=== PATIENT | male | born 2000 | race Caucasian/White ===

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

== ENCOUNTER 2021-04-21 10:01 | Emergency (ER) | payer MEDICAID, OTHER ==
[~2021-04-21] VITALS: Ht 185.4 cm; Wt 89.8 kg
--- NOTE | 2021-04-21 10:24 | PHYS DOC ---
Past History Past Medical History: Other (ALCIDES EDEN APRN) Past Surgical History: No Surgical History (ALCIDES EDEN APRN) Smoking: Non-smoker Alcohol Use: None Drug Use: None (ALCIDES EDEN APRN) General Adult EDM: Chief Complaint: ABDOMINAL PAIN HPI: HPI: Patient is a 20-year-old male who presents to the emergency department for multiple complaints. Patient reports on and Wednesday he had nausea, vomiting and a nonproductive cough. He took at home Covid test on Wednesday and it was negative. He reports on Wednesday and Wednesday he started developing dysuria with right lower quadrant pain that radiates to his right testicle. He rates the pain 3 out of 10. It is worse with movement. No treatment prior to arrival. Patient denies any urethral discharge, nausea, vomiting, diarrhea, blood in his stools, difficulty breathing, fevers, urinary frequency or urgency. He has no medical history. He is not vaccinated for COVID-19. (ALCIDES EDEN APRN) Review of Systems: Review of Systems: Constitutional: negative unless reported in HPI Eyes: negative unless reported in HPI HENT: negative unless reported in HPI Respiratory: negative unless reported in HPI Cardiovascular: negative unless reported in HPI GI: negative unless reported in HPI : negative unless reported in HPI Musculoskeletal: negative unless reported in HPI Integument: negative unless reported in HPI Neurologic: negative unless reported in HPI Endocrine: negative unless reported in HPI Lymphatic: negative unless reported in HPI Psychiatric: negative unless reported in HPI (ALCIDES EDEN APRN) Current Medications: Current Meds: Current Medications Medications (Trade) Dose Ordered Sig/Mukesh Start Time Stop Time Status Last Admin Dose Admin Fentanyl Citrate (Fentanyl 2ml Vial) 50 mcg 1X ONCE 04/21/21 10:30 04/21/21 10:31 UNV Sodium Chloride 1,000 ml @ 1,000 mls/hr Q1H 04/21/21 10:30 04/21/21 11:29 UNV (ALCIDES EDEN APRN) Allergies: Allergies: Allergies Coded Allergies Type Severity Reaction Last Updated Verified No Known Drug Allergies 01/28/18 No (ALCIDES EDEN APRN) Physical Exam: PE: Constitutional: Well developed, well nourished, no acute distress, non-toxic appearance. [] HENT: Normocephalic, atraumatic, bilateral external ears normal, oropharynx moist, no oral exudates, nose normal. [] Eyes: PERRL, EOMI, conjunctiva normal, no discharge. [] Neck: Normal range of motion, no tenderness, supple, no stridor. [] Cardiovascular:Heart rate tachycardic rhythm, no murmur [] Lungs & Thorax: Bilateral breath sounds clear to auscultation [] Abdomen: Bowel sounds normal, soft, patient has tenderness with palpation to right upper, right lower and left lower quadrant, abdomen is not rigid, no rebound tenderness,, no masses, no pulsatile masses. [] Skin: Warm, dry, no erythema, no rash. [] Back: No tenderness, no CVA tenderness. [] Extremities: No tenderness, no cyanosis, no clubbing, ROM intact, no edema. [] Neurologic: Alert and oriented X 3, normal motor function, normal sensory function, no focal deficits noted. [] Psychologic: Affect normal, judgement normal, mood normal. [] (ALCIDES EDEN APRN) Current Patient Data: Labs: Laboratory Tests Test 04/21/21 10:15 04/21/21 10:35 04/21/21 10:40 Urine Collection Type Unknown Urine Color Yellow Urine Clarity Clear Urine pH 6.5 Urine Specific [place] 1.015 Urine Protein Neg Urine Glucose (UA) Neg mg/dL Urine Ketones (Stick) >=160 mg/dL Urine Blood Neg Urine Nitrite Neg Urine Bilirubin Small Urine Urobilinogen Dipstick 1.0 mg/dL Urine Leukocyte Esterase Neg Urine RBC Occ /HPF Urine WBC Occ /HPF Urine Squamous Epithelial Cells Few /LPF Urine Bacteria 0 /HPF Urine Mucus Slight /LPF White Blood Count 15.7 x10^3/uL Red Blood Count 4.69 x10^6/uL Hemoglobin 13.7 g/dL Hematocrit 40.1 % Mean Corpuscular Volume 85 fL Mean Corpuscular Hemoglobin 29 pg Mean Corpuscular Hemoglobin Concent 34 g/dL Red Cell Distribution Width 12.7 % Platelet Count 293 x10^3/uL Neutrophils (%) (Auto) 82 % Lymphocytes (%) (Auto) 6 % Monocytes (%) (Auto) 11 % Eosinophils (%) (Auto) 1 % Basophils (%) (Auto) 0 % Neutrophils # (Auto) 12.9 x10^3uL Lymphocytes # (Auto) 0.9 x10^3/uL Monocytes # (Auto) 1.7 x10^3/uL Eosinophils # (Auto) 0.1 x10^3/uL Basophils # (Auto) 0.0 x10^3/uL Platelet Estimate Pending Sodium Level 130 mmol/L Potassium Level 3.4 mmol/L Chloride Level 95 mmol/L Carbon Dioxide Level 24 mmol/L Anion Gap 11 Blood Urea Nitrogen 9 mg/dL Creatinine 0.8 mg/dL Estimated GFR (Cockcroft-Gault) 124.5 BUN/Creatinine Ratio 11 Glucose Level 84 mg/dL Calcium Level 8.8 mg/dL Total Bilirubin 0.8 mg/dL Aspartate Amino Transf (AST/SGOT) 43 U/L Alanine Aminotransferase (ALT/SGPT) 59 U/L Alkaline Phosphatase 172 U/L Total Protein 7.2 g/dL Albumin 3.2 g/dL Albumin/Globulin Ratio 0.8 Lipase 59 U/L Influenza Type A (Rapid) Negative Influenza Type B (Rapid) Negative SARS-CoV-2 Antigen (Rapid) Negative Current Medications Medications (Trade) Dose Ordered Sig/Mukesh Route PRN Reason Start Time Stop Time Status Last Admin Dose Admin Sodium Chloride 1,000 ml @ 1,000 mls/hr Q1H IV 04/21/21 10:30 04/21/21 11:29 DC 04/21/21 10:39 Fentanyl Citrate (Fentanyl 2ml Vial) 50 mcg 1X ONCE IVP 04/21/21 10:30 04/21/21 10:31 DC 04/21/21 10:39 Iohexol (Omnipaque 350 Mg/ml) 100 ml 1X ONCE IV 04/21/21 10:30 04/21/21 10:31 DC 04/21/21 10:42 Info (Do NOT chart on this entry -- for MONITORING) 1 each PRN DAILY PRN MC SEE COMMENTS 04/21/21 10:30 04/23/21 10:29 Fentanyl Citrate (Fentanyl 2ml Vial) 50 mcg 1X ONCE IVP 04/21/21 11:45 04/21/21 11:46 DC 04/21/21 11:47 Piperacillin Sod/ Tazobactam Sod 4.5 gm/Sodium Chloride 50 ml @ 100 mls/hr 1X ONCE IV 04/21/21 11:45 04/21/21 12:14 04/21/21 11:49 Sodium Chloride 50 ml @ As Directed STK-MED ONCE .ROUTE 04/21/21 11:39 04/21/21 11:39 DC Piperacillin Sod/ Tazobactam Sod (Zosyn) 4.5 gm STK-MED ONCE IV 04/21/21 11:39 04/21/21 11:39 DC (ALCIDES EDEN APRN) EKG: EKG: [] (ALCIDES EDEN APRN) Radiology/Procedures: Radiology/Procedures: []PROCEDURE: CT ABD PELV W/ IV CONTRST ONLY INDICATION: Reason: ruq, rlq pain / Spl. Instructions: / History: COMPARISON: None. TECHNIQUE: Axial CT images were obtained through the abdomen and pelvis with intravenous contrast. One or more of the following individualized dose reduction techniques were utilized for this examination: 1. Automated exposure control; 2. Adjustment of the mA and/or kV according to patient size; 3. Use of iterative reconstruction technique. FINDINGS: Vascular: No abdominal aortic aneurysm. Hepatobiliary: No intrahepatic biliary duct dilation. Pancreas: No peripancreatic edema. Spleen: Mildly prominent in size. Renal/Bladder: No hydronephrosis. Gastrointestinal: Free fluid in the pelvis which appears partially loculated measuring up to about 71 mm. Dilated blind-ending tubular structure right lower quadrant measuring up to about 24 mm in size with adjacent edema to the fat. Appendicolith within. There is some apparent inflammation of the adjacent bowel loops including distal ileum. There is some free fluid seen posterior to the right side of the colon as well. Degenerative changes the spine. IMPRESSION: * The appendix is dilated with thickening of the wall and adjacent edema consistent with acute appendicitis. There is also adjacent free fluid as well as some fluid in the pelvis which appears partially loculated as well as wall thickening and inflammation of the adjacent bowel loops which could be secondary to the adjacent appendicitis causing inflammation of the adjacent bowel. Report called to the emergency department at 11:00 AM on date of exam. Electronically signed by: Karl Hernandes MD (04/21/2021 11:08 AM) [id number] DICTATED AND SIGNED BY: KARL HERNANDES MD DATE: 04/21/21 1055 CC: ALCIDES EDEN APRN; PCP,NO ~MTH0 0 (ALCIDES EDEN APRN) Heart Score: C/O Chest Pain: N/A Risk Factors: Risk Factors: DM, Current or recent (<one month) smoker, HTN, HLP, family history of CAD, obesity. Risk Scores: Score 0 - 3: 2.5% MACE over next 6 weeks - Discharge Home Score 4 - 6: 20.3% MACE over next 6 weeks - Admit for Clinical Observation Score 7 - 10: 72.7% MACE over next 6 weeks - Early Invasive Strategies (ALCIDES EDEN APRN) Course & Med Decision Making: Course & Med Decision Making Pertinent Labs and Imaging studies reviewed. (See chart for details) [] Patient presents to the emergency department for right lower quadrant pain that radiates to his right testicle with dysuria. Patient did have a history of nausea vomiting and a cough and had a negative at-home COVID test. Patient will be tested for Covid in the ER. Patient is tender in his right upper and lower quadrant as well as his left lower quadrant. Work-up in the ER consisted of blood work, urinalysis, GC chlamydia testing, CT imaging of abdomen and pelvis. Patient was tachycardic in the emergency department and will be treated with IV fluids he will also receive pain medication. Patient has leukocytosis with a white blood cell count of 15.7, CMP is mostly unremarkable. CT scan of abdomen and pelvis shows a dilated appendix with edema consistent with appendicitis with adjacent free fluid in the pelvis and inflammation of the bowel loops. I discussed these findings with Dr. Natarajan who is general surgery at [facility] and he agreed to consult on the patient. He recommended IV Zosyn. This was ordered for patient. Patient's last meal was Wednesday and n.p.o. orders were placed. I discussed these fin dings with Dr. St who agreed to admit the patient at [facility] under his services. I discussed these findings with patient as well as care plan and he is agreeable at this time. (ALCIDES EDEN APRN) Dragon Disclaimer: Dragon Disclaimer: This electronic medical record was generated, in whole or in part, using a voice recognition dictation system. (ALCIDES EDEN APRN) Departure Departure: Impression: Primary Impression: Appendicitis Qualified Codes: K35.80 - Unspecified acute appendicitis Disposition: 02 SHORT TERM HOSPITAL Condition: STABLE Referrals: PCP,NO (PCP) Attending Signature Attending Signature I have reviewed the PA/LICENSED AUDIOLOGIST's note and plan of care. I was available for consultation as needed during the patient's visit in the emergency department. I agree with the clinical impression, plan, and disposition. (KARELY SANTAMARIA DO) ALCIDES EDEN APRN Apr 21, 2021 10:24 KARELY SANTAMARIA DO Apr 21, 2021 21:37
[2021-04-21] MEDS ORDERED: CONTRAST GIVEN. MC PRN (10:30)
[2021-04-21] MEDS ORDERED: IOHEXOL 350 MG/ML 100 ML VIAL. IV ONE (10:30)
[2021-04-21] MEDS ORDERED: IV NORMAL SALINE 1,000ML 1,000 ML IV SCH (10:30)
[2021-04-21 11:04] LABS: BASO % 0 % (0-3); EOS # 0.1 x10^3/uL (0.0-0.7); EOS % 1 % (0-3); HEMATOCRIT 40.1 % (39.0-53.0); HEMOGLOBIN 13.7 g/dL (13.0-17.5); LYMPH # 0.9 x10^3/uL (1.0-4.8); LYMPH % 6 % (24-48); MEAN CORPUSCULAR HEMOGLOBIN 29 pg (25-35); MEAN CORPUSCULAR HGB CONC 34 g/dL (31-37); MEAN CORPUSCULAR VOLUME 85 fL (79-100); MONO # 1.7 x10^3/uL (0.0-1.1); MONO % 11 % (0-9); NEUT # 12.9 x10^3uL (1.8-7.7); NEUT % 82 % (31-73); PLATELET COUNT 293 x10^3/uL (140-400); RED BLOOD COUNT 4.69 x10^6/uL (4.30-5.70); RED CELL DISTRIBUTION WIDTH 12.7 % (11.5-14.5); WHITE BLOOD COUNT 15.7 x10^3/uL (4.0-11.0)
[2021-04-21 11:09] LABS: CALCIUM 8.8 mg/dL (8.5-10.1); CREATININE 0.8 mg/dL (0.7-1.3); GFR 124.5; POTASSIUM 3.4 mmol/L (3.5-5.1)
[2021-04-21 11:10] LABS: BACTERIA,URINE 0 /HPF (0-FEW); BILIRUBIN,URINE SMALL (NEG); CLARITY,URINE CLEAR; COLOR,URINE YELLOW; GLUCOSE,URINE NEG (NEG); NITRITE,URINE NEG (NEG); RBC,URINE OCC /HPF (0-2); SQUAMOUS EPITHELIAL CELL,UR FEW /LPF; WBC,URINE OCC /HPF (0-4)
--- NOTE | 2021-04-21 11:11 | RAD ---
INDICATION: Reason: ruq, rlq pain / Spl. Instructions: / History: COMPARISON: None. TECHNIQUE: Axial CT images were obtained through the abdomen and pelvis with intravenous contrast. One or more of the following individualized dose reduction techniques were utilized for this examinat ion: 1. Automated exposure control; 2. Adjustment of the mA and/or kV according to patient size; 3 . Use of iterative reconstruction technique. FINDINGS: Vascular: No abdominal aortic aneurysm. Hepatobiliary: No intrahepatic biliary duct dilation. Pancreas: No peripancreatic edema. Spleen: Mildly prominent in size. Renal/Bladder: No hydronephrosis. Gastrointestinal: Free fluid in the pelvis which appears partially loculated measuring up to about 71 mm. Dilated blind-ending tubular structure right lower quadrant measuring up to about 24 mm in size with adjacent edema to the fat. Appendicolith within. There is some apparent inflammation of the elise cent bowel loops including distal ileum. There is some free fluid seen posterior to the right side of the colon as well. Degenerative changes the spine. IMPRESSION: * The appendix is dilated with thickening of the wall and adjacent edema consistent with acute appe ndicitis. There is also adjacent free fluid as well as some fluid in the pelvis which appears partial ly loculated as well as wall thickening and inflammation of the adjacent bowel loops which could be s econdary to the adjacent appendicitis causing inflammation of the adjacent bowel. Report called to [facility] emergency department at 11:00 AM on date of exam. Electronically signed by: Angelo Abraham MD (04/21/2021 11:08 AM) [id number]
[2021-04-21 11:15] LABS: ALBUMIN 3.2 g/dL (3.4-5.0); ALBUMIN/GLOBULIN RATIO 0.8 (1.0-1.7); TOTAL BILIRUBIN 0.8 mg/dL (0.2-1.0); TOTAL PROTEIN 7.2 g/dL (6.4-8.2)
[2021-04-21 11:25] LABS: INFLUENZA A PATIENT NEGATIVE (NEGATIVE); INFLUENZA B PATIENT NEGATIVE (NEGATIVE)
[2021-04-21] MEDS ORDERED: IV NORMAL SALINE 50ML 50 ML ONE (11:39)
[2021-04-21] MEDS ORDERED: PIPERACILLIN/TAZOBACTAM 4.5 GM VIAL IV ONE (11:39)
[2021-04-21] MEDS ORDERED: PIPERACILLIN/TAZOBACTAM 4.5 GM in IV NORMAL SALINE 50ML 50 ML IV ONE (11:45)
[2021-04-21 12:39] LABS: % BANDS 2 % (0-9); % LYMPHS 12 % (24-48); % MONOS 11 % (0-10); % SEGS 75 % (35-66); PLT ESTIMATE ADEQUATE (ADEQUATE)
[2021-04-21 15:30] VITALS: BP 110/69
[2021-04-21] MEDS ORDERED: MORPHINE SULFATE 2 MG/ML DISP.SYRIN. IV ONE (15:30)
== END 2021-04-21 16:32 | disposition short-term general hospital (02) ==
LOC: ER 10:01
DX: K35.80 Unspecified acute appendicitis (principal); Z20.822 Contact with and (suspected) exposure to COVID-19; R05.9 Cough, unspecified; R11.2 Nausea with vomiting, unspecified
CPT/HCPCS: 36415; 74177; 80053; 81001; 83605; 83690; 85007; 85025; 87428; 87491; 87591; 96361; 96365; 96375; 96376; 99285; C9803; J2270; J2543; J3010; J7030; Q9967; U0003